=== PATIENT | female | born 1985 | race Caucasian/White ===

== ENCOUNTER 2018-06-10 10:57 | Emergency (ER) | payer MEDICAID ==
[~2018-06-10] VITALS: Ht 167.6 cm; Wt 97.1 kg
[2018-06-10 11:07] VITALS: BP 129/85; Ht 167.6 cm; Wt 97.1 kg
== END 2018-06-10 12:35 | disposition home or self-care (01) ==
LOC: ED 10:57
DX: S92.352A Displaced fracture of fifth metatarsal bone, left foot, initial encounter for closed fracture (principal); X50.1XXA Overexertion from prolonged static or awkward postures, initial encounter; Y93.89 Activity, other specified; Y92.89 Other specified places as the place of occurrence of the external cause; Y99.8 Other external cause status

== ENCOUNTER 2019-07-20 14:29 | Emergency (ER) | payer MEDICAID ==
[~2019-07-20] VITALS: Ht 167.6 cm; Wt 90.7 kg
[2019-07-20 14:36] VITALS: BP 121/75; Ht 167.6 cm; Wt 90.7 kg
== END 2019-07-20 15:30 | disposition home or self-care (01) ==
LOC: ED 14:29
DX: S61.216A Laceration without foreign body of right little finger without damage to nail, initial encounter (principal); W45.8XXA Other foreign body or object entering through skin, initial encounter; Y93.G1 Activity, food preparation and clean up; Y92.89 Other specified places as the place of occurrence of the external cause; Y99.8 Other external cause status
CPT/HCPCS: J2001

== ENCOUNTER 2019-07-22 10:21 | Emergency (ER) | payer MEDICAID ==
[~2019-07-22] VITALS: Ht 167.6 cm; Wt 91.6 kg
[2019-07-22 10:26] VITALS: Ht 167.6 cm; Wt 91.6 kg
[2019-07-22 11:13] VITALS: BP 131/77
== END 2019-07-22 11:13 | disposition home or self-care (01) ==
LOC: ED 10:21
DX: S61.216D Laceration without foreign body of right little finger without damage to nail, subsequent encounter (principal); X58.XXXD Exposure to other specified factors, subsequent encounter
CPT/HCPCS: 90714

== ENCOUNTER 2019-07-30 14:52 | Emergency (ER) | payer MEDICAID ==
[~2019-07-30] VITALS: Ht 165.1 cm; Wt 90.7 kg
[2019-07-30 15:04] VITALS: BP 123/76; Ht 165.1 cm; Wt 90.7 kg
== END 2019-07-30 15:13 | disposition home or self-care (01) ==
LOC: ED 14:52
DX: S61.216D Laceration without foreign body of right little finger without damage to nail, subsequent encounter (principal); X58.XXXD Exposure to other specified factors, subsequent encounter

== ENCOUNTER 2019-08-11 21:46 | Emergency (ER) | payer MEDICAID, SELFPAY ==
[~2019-08-11] VITALS: Ht 167.6 cm; Wt 90.7 kg
[2019-08-11 22:25] VITALS: Ht 167.6 cm; Wt 90.7 kg
[2019-08-11 23:58] VITALS: BP 121/67
== END 2019-08-11 23:58 | disposition home or self-care (01) ==
LOC: ED 21:46
DX: U07.1 COVID-19 (principal); R11.10 Vomiting, unspecified; R19.7 Diarrhea, unspecified
CPT/HCPCS: U0003-CS